=== PATIENT | female | born 1990 | race Caucasian/White ===

== ENCOUNTER 2023-05-13 09:19 | Emergency (ER) | payer BC, OTHER, SELFPAY ==
[2023-05-13 09:42] VITALS: BP 116/79; RESP 16; TEMP 36.9; O2SAT 100
[2023-05-13 09:44] VITALS: PULSE 72
--- NOTE | 2023-05-13 09:56 | ED.URI ---
HPI - URI/Sore Throat General Chief Complaint: Upper Respiratory Infection Stated Complaint: Sinus Infection Time Seen by Provider: 05/13/23 09:56 Source: patient, RN notes reviewed and old records reviewed Mode of arrival: ambulatory Limitations: no limitations History of Present Illness HPI Narrative: 33 year old female who presets to express care with complaints of 2 day history of sinus congestion, sinus pressure with drainage and bilateral ear pain. Patient reports that het head feels like it is in a bubble. Patient states her throat is tingly but denies any soreness to her throat. Patient reports history of sinus infections in the past and feels she needs antibiotic. Patient declines any COVID,Flu or strep swabs for testing. Patient states that her children have been ill with ear infections. Patient states that she has taken Sudafed, Zyrtec,Ibuprofen and has used nasal spray. Patient denies any fever. MD elicited complaint: cough, sore throat, rhinorrhea, nasal congestion, sinus pain and other (ear pain) Pertinent past history: sinusitis and other Onset (ago): day(s) (2) Pain scale (0-10): 6 Able to tolerate fluids by mouth: Yes Treatments prior to arrival: ibuprofen and other (Sudafed, Zyrtec, nasal spray) Related Data Home Medications Medication Instructions Recorded Confirmed sertraline 50 mg tablet (Zoloft) 50 mg PO DAILY 02/17/22 05/13/23 Allergies Allergy/AdvReac Type Severity Reaction Status Date / Time No Known Drug Allergies Allergy Mild Unknown Verified 04/20/23 14:57 Review of Systems Review of Systems: CONSTITUTIONAL: Reports malaise, no chills, sweats, or fever. EYES: Denies visual changes, redness, or discharge. ENT: Reports rhinorrhea, congestion, sinus pain, otalgia and sore throat. CARDIOVASCULAR: Denies chest pain, palpitations, or edema. RESPIRATORY: Reports occasional cough.? Denies dyspnea. GASTROINTESTINAL: Denies abdominal pain, nausea, vomiting, diarrhea SKIN: Denies rash or itching. MUSCULOSKELETAL:reports myalgia. NEUROLOGIC: Denies headache. All systems reviewed & are unremarkable except as noted in HPI and below PMFSH Past Medical History Medical History (Updated 05/15/23 @ 10:26 by Belgica Hicks NP) Depression History of sinus problem Peripheral edema Surgical History Surgical History Previous section Social History Social History Smoking status: Never smoker Alcohol intake: never Substance use: never Lack of Transportation: No Lack of Food: Never True Current Housing: I Have Housing Concerned About Future Housing: No Difficulty Paying Gas/Electric Bills: No Difficulty Paying for Meds: No Currently Unemployed: No Difficulty w/ Childcare or Family Care: No Living arrangements: with family Occupation/Education: occupation Gender identity (if verbalized by the patient): Female Sexual Orientation (if Verbalized by the Patient): Straight or Heterosexual Comments At time of signature, agree with nursing past medical, surgical, social and family history. There is no relevant family history pertinent to the presenting complaint Exam Narrative: GENERAL: Well-appearing, well-nourished, and in no acute distress. HEAD: Normocephalic EYES: PERRLA, conjunctivae clear ENT: Nares clear, turbinates edematous and erythematous, clear discharge. Mucous membranes moist. TM pearly bautista with dull light reflex bilaterally; no tragal tenderness. Oropharynx erythematous without lesions. Tonsils not enlarged and without exudate, no drooling, no hoarseness, no trismus, uvula midline.post nasal drainage NECK: Supple. No lymphadenopathy CHEST: Clear to auscultation, breath sounds equal. No wheezing, rhonchi, rales, or stridor. No respiratory distress, speaks in full sentences.occasional cough,SAO2 100% HEART: Regular r
== END 2023-05-13 10:20 | disposition home or self-care (01) ==
PROVIDERS: Emergency Provider Registered Nurse; PCP Physician Assistant Medical
DX: J01.90 Acute sinusitis, unspecified (principal); F32.A Depression, unspecified
CPT/HCPCS: 99213; G0463